=== PATIENT | male | born 1995 | race Two or more races ===

== ENCOUNTER 2020-06-30 18:18 | Emergency (ER) | payer OTHER ==
[~2020-06-30] VITALS: Ht 180.3 cm; Wt 104.1 kg
[2020-06-30 18:38] VITALS: BP 144/82
--- NOTE | 2020-06-30 18:58 | REP ---
INDICATION: TWISTED ANKLE, PAIN COMPARISON: None. TECHNIQUE: AP, lateral, bilateral oblique views. FINDINGS: No acute fracture or dislocation. Skeletal structures and joint spaces are intact and normal. Ankle mortise appears stable. No subcutaneous emphysema or radiodense foreign body. IMPRESSION: Normal left ankle radiograph series. No acute fracture or dislocation. <Electronically signed by Gadiel Pettit > 06/30/20 [id number]
--- NOTE | 2020-06-30 18:59 | REP ---
INDICATION: trauma COMPARISON: None. TECHNIQUE: AP and lateral views of the left tibia/fibula. FINDINGS: The osseous structures and joint spaces are intact and normal. There is no evidence for acute fracture or dislocation. Surrounding soft tissues are unremarkable. No subcutaneous emphysema or radiodense foreign body. IMPRESSION: No acute fracture or dislocation. <Electronically signed by Gadiel Pettit > 06/30/20 [id number]
== END 2020-06-30 19:20 | disposition home or self-care (01) ==
LOC: M ED 18:18
DX: S93.402A Sprain of unspecified ligament of left ankle, initial encounter (principal); X50.1XXA Overexertion from prolonged static or awkward postures, initial encounter; Y92.9 Unspecified place or not applicable; Y93.9 Activity, unspecified; Y99.9 Unspecified external cause status